=== PATIENT | female | born 1935 | race Caucasian/White ===

== ENCOUNTER 2017-03-03 19:03 | Emergency (ER) | payer MEDICARE, BC ==
[2017-03-03 19:21] VITALS: BP 165/66
[2017-03-03] MEDS ORDERED: DOXYcycline CAP(*) 100 MG PO ONE (20:46)
--- NOTE | 2017-03-03 21:01 | ED ---
Bite Injury/Animal - HPI Summary HPI Summary: Patient presents with part of a tick in her right rib area. She and her partner tried to get it out, but he felt like it only came out in pieces. She thinks it has only been there since yesterday. No other symptoms. - History of Current Complaint Chief Complaint: EDAnimalBite Stated Complaint: TICK ON BACK Time Seen by Provider: 03/03/17 20:27 Hx Obtained From: Patient Onset of Injury: Still Present Type of Bite: Wild Animal - tick Severity Initially: Mild Severity Currently: Mild Pain Intensity: 0 Character: Puncture Aggravating Factor(s): Nothing Alleviating Factor(s): Nothing Associated Signs And Symptoms: Positive: Erythema - mild PMH/Surg Hx/FS Hx/Imm Hx Previously Healthy: Yes Infectious Disease History: No Infectious Disease History: Denies: Traveled Outside the [place] in Last 30 Days - Family History Known Family History: Positive: None - Social History Occupation: Retired Lives: With Family Alcohol Use: None Substance Use Type: Reports: None Smoking Status (MU): Never Smoked Tobacco Review of Systems Negative: Edema Positive: Other - pea size area of erythema All Other Systems Reviewed And Are Negative: Yes Physical Exam Triage Information Reviewed: Yes Vital Signs On Initial Exam: Initial Vitals Temp Pulse Resp BP Pulse Ox 98.1 F 74 18 165/66 100 03/03/17 19:08 03/03/17 19:08 03/03/17 19:08 03/03/17 19:08 03/03/17 19:08 Vital Signs Reviewed: Yes Appearance: Positive: Well-Appearing, No Pain Distress, Well-Nourished Skin: Positive: Warm, Skin Color Reflects Adequate Perfusion, Dry, Soft, Erythema @ - pea size area of erythema with a .5mm black foreign body in the center Head/Face: Positive: Normal Head/Face Inspection Eyes: Positive: EOMI, STEVE, Conjunctiva Clear ENT: Positive: Hearing grossly normal Respiratory/Lung Sounds: Positive: Breath Sounds Present Cardiovascular: Positive: RRR Musculoskeletal: Negative: Edema Left, Edema Right Neurological: Positive: Sensory/Motor Intact, Alert, Oriented to Person Place, Time, NV Bundle Intact Distally, Normal Gait Psychiatric: Positive: Affect/Mood Appropriate AVPU Assessment: Alert Diagnostics - Vital Signs Vital Signs Temp Pulse Resp BP Pulse Ox 03/03/17 19:08 98.1 F 74 18 165/66 100 - Laboratory Lab Statement: Any lab studies that have been ordered have been reviewed, and results considered in the medical decision making process. Bite Injury Course/Dx - Diagnoses Differential Diagnosis/HQI/PQRI: Positive: Cellulitis, Envenomation, Puncture, Superficial Infection Provider Diagnosis: Tick bite Discharge - Discharge Plan Condition: Stable Disposition: HOME Patient Education Materials: Tick Bite (ED) Referrals: James Wan MD [Primary Care Provider] - Additional Instructions: Please follow-up with your primary care provider as scheduled. Return to the emergency department if symptoms worsen.
== END 2017-03-03 21:14 | disposition home or self-care (01) ==
LOC: ED 19:03
DX: S20.361A Insect bite (nonvenomous) of right front wall of thorax, initial encounter (principal); W57.XXXA Bitten or stung by nonvenomous insect and other nonvenomous arthropods, initial encounter; Y92.9 Unspecified place or not applicable
CPT/HCPCS: 99281; A9270-GY

== ENCOUNTER 2017-10-29 14:27 | Emergency (ER) | payer MEDICARE, BC ==
[2017-10-29] MEDS ORDERED: Morphine INJ* 4 MG/ML 1 ML CARPUJECT IV ONE ×2 (14:33→15:37)
[2017-10-29] MEDS ORDERED: Ondansetron INJ* 2 MG/ML VIAL IV ONE (14:33)
[2017-10-29] MEDS ORDERED: Tetan/Diph/Pertus SYR(Tdap)* 0.5 ML SYR(BOOSTRIX) use SYR IM ONE (14:34)
[2017-10-29] MEDS ORDERED: Morphine INJ* 4 MG/ML 1 ML CARPUJECT ONE (14:47)
[2017-10-29] MEDS ORDERED: NS 0.9% 1000 ML* 1,000 ML IV ONE (14:50)
[2017-10-29 14:51] LABS: Hematocrit 39 % (35-47); Hemoglobin 13.2 g/dl (12.0-16.0); Mean Corpuscular HGB Conc 34 g/dl (31-36); Mean Corpuscular Hemoglobin 30 pg (27-31); Mean Corpuscular Volume 87 fL (80-97); Mean Platelet Volume 8 um3 (7.4-10.4); Platelet Count 222 10^3/ul (150-450); Red Blood Count 4.47 10^6/ul (4.0-5.4); Red Cell Distribution Width 14 % (10.5-15); White Blood Count 8.2 10^3/ul (3.5-10.8)
[2017-10-29 15:16] LABS: INR 0.87 (0.77-1.02)
--- NOTE | 2017-10-29 15:23 | RAD ---
HISTORY: Left hand laceration COMPARISONS: None VIEWS: 2, Frontal and lateral views of the left hand FINDINGS: BONE DENSITY: There is diffuse osteopenia. BONES: There is no displaced fracture. JOINTS: There is osteoarthritis of the interphalangeal joints. ALIGNMENT: There is no dislocation. SOFT TISSUES: There is soft tissue irregularity consistent with the history of laceration along the distal second digit. OTHER FINDINGS: None. IMPRESSION: 1. OSTEOPENIA. 2. OSTEOARTHRITIS. 3. SOFT TISSUE INJURY CONSISTENT WITH HISTORY OF LACERATION. 4. NO ACUTE OSSEOUS INJURY. IF SYMPTOMS PERSIST, RECOMMEND REPEAT IMAGING
[2017-10-29] MEDS ORDERED: ceFAZolin 2 GM PREMIX (*) 2 GM/50 ML BAG IVPB ONE (15:59)
[2017-10-29] MEDS ORDERED: Lidocaine 2.5%/Prilocain 2.5%* 5 GM TUBE TOPICAL ONE (16:15)
--- NOTE | 2017-10-29 18:59 | ED ---
Progress - Progress Note Progress Note: Procedure for multiple laceration closure of distal tip/pad injuries of Lt index, middle and ring fingers. MEDIAN N. BLOCK performed BY DR. LOZOYA - PARTIALLY EFFECTIVE (THUMB IS COMPLETELY NUMB); Pt tolerated warm water/hibaclens solution soak with agitation w/o pain and sharp/dull testing performed and perceived to be effective. Initiated closure of wound of index finger but pt reported pain. Re- evaluated digits and observed INDEX, MIDDLE AND RING FINGERS only ARTIALLY NUMB. Additional INDEX FINGER digital BLOCK W/ 1% LIDOCAINE - successful so initiated closure however again upon further closure, pt reports pain with sutures so procedure was interrupted and signed out to Loretta Ramos PA-C as time required for closure would be lengthy. Lt index finger distal tip no nerves, vessels, tendons nor debris observed upon inspection - hemodynamically stable Length: 3cm x 5mm x 2.5mm; irregular/jagged edges, partial dermis missing - subcutaneous tissue extruding Sutures: #3 5-0 NYLON SUTURES PLACED - wound requires further closure Despite inadequate anesthesia in some places, pt tolerated procedure well Course/Dx - Diagnoses Provider Diagnoses: Laceration of multiple sites of left hand and fingers
--- NOTE | 2017-10-29 21:09 | PN ---
Progress Note - Progress Note Date of Service: 10/29/17 Note: patient signed out by Caro GAMBOA pending completion of laceration closure by Loretta GAMBOA cleaned with 100cc additional saline performed digitial block with lidocaine 1% of 3rd and 4th finger due to median nerve block not working prolene 4-0 single layer closer index finger: 3cm by 1/2cm by 1/4cm deep, irregular, placed 8 sutures total: 3 by Caro and 5 by middle finger: 3cm flap like laceration placed 5 sutures rincm flap like placed 2 sutures placed xeroform, telfa and coband
[2017-10-29 21:53] VITALS: BP 158/87
--- NOTE | 2017-11-01 15:49 | ED ---
Jorden Cruz Gabriel, scribed for Darrian Alicea MD on 10/29/17 at 1435 . Upper Extremity Pain - HPI Summary HPI Summary: This patient is a 82 year old F presenting to [facility] accompanied by her with a chief complaint of finger laceration on the left hand since 16:20. Patient states she was ripping a board when it kicked and she cut her fingers on the table saw. Patient reports dizziness and nausea. Patient states she is in shock and cant feel any pain yet. She is requesting pain medication before the pain sets in. NKDA and last tetanus was approximately 10 years ago. - History of Current Complaint Chief Complaint: EDExtremityUpper Stated Complaint: LEFT HAND LAC Time Seen by Provider: 10/29/17 14:33 Hx Obtained From: Patient Mechanism Of Injury: Penetrating Trauma Onset/Duration: Still Present Timing: Constant Severity Initially: Severe Severity Currently: Severe Pain Location: Finger Associated Signs & Symptoms: Positive: Negative - Allergies/Home Medications Allergies/Adverse Reactions: Allergies Allergy/AdvReac Type Severity Reaction Status Date / Time Iodine Allergy Unknown Verified 10/29/17 16:46 Reaction Details PMH/Surg Hx/FS Hx/Imm Hx Endocrine/Hematology History: Denies: Hx Anticoagulant Therapy, Hx Blood Disorders, Hx Bone Marrow Disease , Hx Diabetes Cardiovascular History: Denies: Hx Aneurysm, Hx Angina, Hx Deep Vein Thrombosis Respiratory History: Denies: Hx Bronchopulmonary Dysplasia, Hx Chronic Obstructive Pulmonary Disease (COPD) Neurological History: Denies: Hx CVA, Hx Dementia - Surgical History Surgery Procedure, Year, and Place: 3 back surgeries and 2 hand - Family History Known Family History: Negative: Cardiac Disease, Hypertension, Diabetes, Renal Disease, Respiratory Disease, Seizure Disorder, Blood Disorder - Social History Lives: With Family Alcohol Use: None Substance Use Type: Reports: None Smoking Status (MU): Never Smoked Tobacco Review of Systems Negative: Fever, Chills Negative: Erythema Negative: Sore Throat Negative: Chest Pain Negative: Shortness Of Breath, Cough Negative: Abdominal Pain, Vomiting, Nausea Negative: dysuria, hematuria Negative: Myalgia, Edema Positive: Other - laceration on left hand . Negative: Rash Neurological: Negative - dizziness All Other Systems Reviewed And Are Negative: Yes Physical Exam - Summary Physical Exam Summary: Constitutional: Well-developed, Well-nourished, Alert. (-) Distressed Skin: there is a cut across the tip of the index, middle, and ring finger on the radial and ulnar aspect of all three fingers. There is no significant bleeding HENT: Normocephalic; Atraumatic Eyes: Conjunctiva normal Neck: Musculoskeletal ROM normal neck. (-) JVD, (-) Stridor, (-) Tracheal deviation Cardio: Rhythm regular, rate normal, Heart sounds normal; Intact distal pulses; The pedal pulses are 2+ and symmetric. Radial pulses are 2+ and symmetric. (-) Murmur Pulmonary/Chest wall: Effort normal. (-) Respiratory distress, (-) Wheezes, (-) Rales Abd: Soft, (-) Tenderness, (-) Distension, (-) Guarding, (-) Rebound Musculoskeletal: (-) Edema Lymph: (-) Cervical adenopathy Neuro: Alert, Oriented x3 Psych: Mood and affect Normal Triage Information Reviewed: Yes Vital Signs Reviewed: Yes Procedures - Procedure Summary Procedure Summary: A median nerve block was performed under US guidance with 3ml of 1% lido , sterile technique was used. Diagnostics - Laboratory Result Diagrams: 10/29/17 14:37 10/29/17 14:37 Lab Statement: Any lab studies that have been ordered have been reviewed, and results considered in the medical decision making process. - Radiology hand XRay Radiology Interpretation Completed By: Radiologist - 1. OSTEOPENIA. 2. OSTEOARTHRITIS. 3. SOFT TISSUE INJURY CONSISTENT WITH HISTORY OF LACERATION. 4. NO ACUTE OSSEOUS INJURY. IF SYMPTOMS PERSIST, RECOMMEND REPEAT IMAGING ED physician has reviewed this radiology report. Course/Dx - Course Assessment/Plan: This patient is a 82 year old F presenting to [facility] accompanied by her with a chief complaint of finger laceration on the left hand since 16:20. Patient states she was ripping a board when it kicked and she cut her fingers on the table saw. Patient reports dizziness and nausea. Patient states she is in shock and cant feel any pain yet. She is requesting pain medication before the pain sets in. NKDA and last tetanus was approximately 10 years ago. Hand Xr reveals, per radiologist, 1. OSTEOPENIA. 2. OSTEOARTHRITIS. 3. SOFT TISSUE INJURY CONSISTENT WITH HISTORY OF LACERATION. 4. NO ACUTE OSSEOUS INJURY. IF SYMPTOMS PERSIST, RECOMMEND REPEAT IMAGING. Test results with no significant abnormalities. In the ED course the patient was given Zofran, morphine, and a tetanus shot. We discussed patient care with Dr. Morales and they recommended irrigation and follow up in his office in 48 hours. He suggested cephalexin for antibiotics. Patient will be discharged with prescription for Keflex and Ultram and follow up from Dr. Morales. The patient is agreeable with this plan. - Diagnoses Provider Diagnoses: Laceration of multiple sites of left hand and fingers - Physician Notifications Discussed Care of Patient With: Andreas Morales Time Discussed With Above Provider: 16:04 Instructed by Provider To: Other - We discussed patient care with Dr. Morales and they recommended irrigation and follow up in his office in 48 hours. He suggested cephalexin for antibiotics. Discharge - Discharge Plan Condition: Stable Disposition: HOME Prescriptions: Cephalexin CAP* [Keflex CAP*] 500 mg PO QID #28 cap traMADol TAB* [Ultram*] 50 mg PO Q6HR PRN #20 tab MDD 4 PRN Reason: Pain Scale 6-10 Patient Education Materials: Cephalexin (By mouth), Tramadol (By mouth), Finger Laceration (ED) Referrals: James Wan MD [Primary Care Provider] - Andreas Morales MD [Medical Doctor] - 3 Days Additional Instructions: Call doctor Morales's office tomorrow to make an appointment for Saturday the .RETURN TO THE EMERGENCY DEPARTMENT FOR CHANGING OR WORSENING SYMPTOMS The documentation as recorded by the Jorden cummins Gabriel accurately reflects the service I personally performed and the decisions made by , Darrian Alicea MD.
== END 2017-10-29 21:52 | disposition home or self-care (01) ==
LOC: ED 14:27
DX: S61.211A Laceration without foreign body of left index finger without damage to nail, initial encounter (principal); S61.213A Laceration without foreign body of left middle finger without damage to nail, initial encounter; S61.215A Laceration without foreign body of left ring finger without damage to nail, initial encounter; W31.2XXA Contact with powered woodworking and forming machines, initial encounter; Y92.9 Unspecified place or not applicable; Z23 Encounter for immunization; Z88.8 Allergy status to other drugs, medicaments and biological substances
CPT/HCPCS: 12001; 36415; 80053; 85027; 85610; 85730; 90715; 96361; 96365; 96375; 96376; 99283; A9270-GY; J0690; J2270; J2405

== ENCOUNTER 2024-08-31 16:35 | Observation (INO) ==
[2024-08-31 17:06] LABS: ABS Eosinophils 0.1 10^3/uL (0.0-0.5); ABS Lymphocytes 1.5 10^3/uL (1.0-4.8); ABS Monocytes 0.4 10^3/uL (0.0-0.9); ABS Neutrophils 3.1 10^3/uL (1.5-7.6); ABS Nucleated RBC 0.01 10^3/ul; Eosinophil % 2.5 %; Hematocrit 39.2 % (35-45); Hemoglobin 13.2 g/dL (11.5-14.3); Lymphocyte % 28.9 %; Mean Corpuscular Hemoglobin 28.9 pg (27-33); Mean Corpuscular Hgb Conc 33.5 g/dL (31-36); Mean Corpuscular Volume 86.2 fL (80-97); Mean Platelet Volume 8.1 fL (7.5-11.2); Nucleated Red Blood Cells % 0.1 %/100WBC (0.0-0.8); Platelet Count 177 10^3/uL (150-450); Red Blood Count 4.55 10^6/uL (3.63-4.92); White Blood Count 5.2 10^3/uL (3.8-11.8)
[2024-08-31 17:13] LABS: INR 1.01 (0.85-1.14)
[2024-08-31 18:26] LABS: Albumin 3.8 g/dL (3.2-5.2); Albumin/Globulin Ratio 1.7 (1-3); Calcium 9.1 mg/dL (8.6-10.3); Creatinine, Serum 0.88 mg/dL (0.51-0.95); Globulin 2.2 g/dL (2-4); Potassium 4.4 mmol/L (3.5-5.0); Total Bilirubin 0.3 mg/dL (0.2-1.0); eGFR CKD-EPI 63.6 (>60)
[2024-08-31 18:47] LABS: High Sensitivity Troponin 1 Hr 4 pg/mL (<15)
[2024-08-31 21:01] LABS: Urine Appearance Clear; Urine Bilirubin Negative (Negative); Urine Blood Negative (Negative); Urine Color Light-Yellow; Urine Glucose Negative (Negative); Urine Ketones Negative (Negative); Urine Nitrite Negative (Negative); Urine Protein Negative (Negative); Urine Specific Gravity 1.019 (1.002-1.030); Urine Urobilinogen Negative (Negative)
[2024-08-31] MEDS: Iohexol 350 (CONTRAST) 500 ML MDV IV ONE (21:25)
[2024-08-31 22:59] LABS: HDL Cholesterol 63.3 mg/dL
[2024-08-31 23:14] LABS: TSH Ultra Thyroid Stim Horm 3.36 mcIU/mL (0.34-5.60)
[2024-09-01 08:04] LABS: Hematocrit 39.7 % (35-45); Hemoglobin 13.2 g/dL (11.5-14.3); Mean Corpuscular Hemoglobin 28.7 pg (27-33); Mean Corpuscular Hgb Conc 33.1 g/dL (31-36); Mean Corpuscular Volume 86.6 fL (80-97); Mean Platelet Volume 8.2 fL (7.5-11.2); Platelet Count 161 10^3/uL (150-450); Red Blood Count 4.59 10^6/uL (3.63-4.92); Red Cell Distribution Width 14.2 % (12-17); White Blood Count 4.5 10^3/uL (3.8-11.8)
[2024-09-01 08:54] LABS: Creatinine, Serum 0.78 mg/dL (0.51-0.95); Potassium 4.2 mmol/L (3.5-5.0); eGFR CKD-EPI 73.5 (>60)
[2024-09-01 12:37] VITALS: BP 135/82
== END 2024-09-01 13:21 | disposition home or self-care (01) ==
LOC: EDHOLD 16:35 → ED 16:35 → SUATTDRO 22:27 → EDHOLD 22:27 → INTOOBSV 22:27 → EDHOLD 09-01 13:20
PROVIDERS: ADMIT Student in an Organized Health Care Education/Training Program; ATTEND Internal Medicine